=== PATIENT | female | born 1995 | race Caucasian/White ===

== ENCOUNTER 2024-05-02 16:05 | Emergency (ER) | payer OTHER ==
[~2024-05-02] VITALS: Ht 160 cm; Wt 75.0 kg
[2024-05-02 16:09] VITALS: O2SAT 97
[2024-05-02] MEDS: ACETAMINOPHEN 325MG TABLET PO ONE (16:56)
[2024-05-02 21:05] VITALS: BP 110/55; PULSE 74; RESP 16; TEMP 36.94740; O2SAT 97
[2024-05-02] MEDS ORDERED: IBUP-2029 MT (21:06)
== END 2024-05-02 21:11 | disposition home or self-care (01) ==
LOC: ER 16:05
DX: S00.83XA Contusion of other part of head, initial encounter (principal); S30.1XXA Contusion of abdominal wall, initial encounter; Y08.89XA Assault by other specified means, initial encounter; Y93.89 Activity, other specified; Y92.89 Other specified places as the place of occurrence of the external cause; Y99.8 Other external cause status
CPT/HCPCS: 70486; 74176; 99284